=== PATIENT | female | born 1990 | race Native Hawaiian/Other Pacific Islander ===

== ENCOUNTER 2018-07-30 22:13 | Emergency (ER) | payer BC ==
[2018-07-30] MEDS ORDERED: MethylPREDNISolone 40 mg Vial IVP STA (22:20)
[2018-07-30] MEDS ORDERED: Sodium Chloride 0.9% 1,000 ML IV ONE (22:20)
[2018-07-30] MEDS ORDERED: DiphenhydrAMINE 50 mg/ml Inj IVP STA (22:20)
[2018-07-30] MEDS ORDERED: DiphenhydrAMINE 50 mg/ml Inj ONE (22:28)
[2018-07-30 22:44] VITALS: BMI 22.8
[2018-07-31 00:23] VITALS: BP 108/69; PULSE 62; RESP 20; TEMP 98.5; O2SAT 99
--- NOTE | 2018-07-31 00:25 | C.PDOC ---
History Of Present Illness 28 year old female presents to the ED for evaluation of allergic rash associated with SOB and abdominal discomfort. Patient reports she ate some shrimp today, patient has a known allergy to shrimp. Patient denies fever, chills, facial swelling, lip swelling, tongue swelling, nausea, vomit, syncope. Time Seen by Provider: 07/30/18 22:35 Chief Complaint (Nursing): Allergic Reaction History Per: Patient History/Exam Limitations: no limitations Onset/Duration Of Symptoms: Hrs Current Symptoms Are (Timing): Still Present Context: Food Possible Cause: Food Associated Symptoms: Skin Rash Severity: None Recent travel outside of the [place]: No Additional History Per: Patient Past Medical History Reviewed: Historical Data, Nursing Documentation, Vital Signs Vital Signs: Last Vital Signs Temp 98.5 F 07/31/18 00:22 Pulse 62 07/31/18 00:22 Resp 20 07/31/18 00:22 BP 108/69 07/31/18 00:22 Pulse Ox 99 07/31/18 00:22 - Medical History PMH: No Chronic Diseases Surgical History: No Surg Hx Family History: States: Unknown Family Hx - Social History Hx Alcohol Use: No Hx Substance Use: No - Immunization History Hx Tetanus Toxoid Vaccination: No Hx Influenza Vaccination: No Hx Pneumococcal Vaccination: No Review Of Systems Constitutional: Negative for: Fever, Chills Cardiovascular: Negative for: Chest Pain Respiratory: Positive for: Shortness of Breath Gastrointestinal: Positive for: Abdominal Pain. Negative for: Nausea, Vomiting, Diarrhea Skin: Positive for: Rash Neurological: Negative for: Weakness, Numbness, Headache Physical Exam - Physical Exam Appears: Non-toxic, No Acute Distress Skin: Warm, Dry, Rash (diffuse urticarial rash) Head: Atraumatic, Normacephalic Eye(s): bilateral: Normal Inspection Oral Mucosa: Moist Tongue: No Swelling Lips: No Swelling Throat: Normal, No Erythema, No Exudate, No Drooling Neck: Normal ROM, Supple Chest: Symmetrical Cardiovascular: Rhythm Regular Respiratory: Normal Breath Sounds, No Rales, No Rhonchi, No Wheezing Gastrointestinal/Abdominal: Soft, No Tenderness, No Guarding, No Rebound Extremity: Normal ROM, No Tenderness, No Swelling Neurological/Psych: Oriented x3, Normal Speech, Normal Cognition Gait: Steady ED Course And Treatment O2 Sat by Pulse Oximetry: 99 (ON RA) Pulse Ox Interpretation: Normal Progress Note: Plan: - beandryl 50 mg IVP. - pepcid 20 mg IVP. - solumedrol 40 mg IVP. - IV fluids. Patient refused Bentyl IM stating she no longer feels abdominal pain. While in the ED patient's rash improved, patient no longer feeling SOB or wheezing. Patient was advised to keep taking antihistamines and to avoid shrimp containing foods. Reevaluation Time: 00:35 Reassessment Condition: Improved Disposition Counseled Patient/Family Regarding: Diagnosis, Need For Followup, Rx Given - Disposition Referrals: [facility] [Outside] Disposition: HOME/ ROUTINE Disposition Time: 00:36 Condition: STABLE Additional Instructions: Increase PO fluids Take medications as directed Avoid any known allergens Return to ER if SOB, chest tightness, mouth / tongue swelling or worse Prescriptions: DiphenhydrAMINE [Benadryl] 50 mg PO TID #15 cap Famotidine [Pepcid] 20 mg PO DAILY #7 tab predniSONE [Prednisone] 40 mg PO DAILY #10 tab Instructions: Hives (DC) Forms: [employer] (Slovak) - Clinical Impression Clinical Impression: Allergic urticaria - PA / [employer] / Resident Statement MD/DO has reviewed & agrees with the documentation as recorded. - Scribe Statement The provider has reviewed the documentation as recorded by the Scribe Tejinder Harris All medical record entries made by the Scribe were at my direction and personally dictated by me. I have reviewed the chart and agree that the record accurately reflects my personal performance of the history, physical exam, medical decision making, and the department course for this patient. I have also personally directed, reviewed, and agree with the discharge instructions and disposition.
== END 2018-07-31 01:03 | disposition home or self-care (01) ==
LOC: C.ER 22:13
DX: L50.0 Allergic urticaria (principal)
CPT/HCPCS: 96374; 96375; 99284; J1200; J2920; J7030